=== PATIENT | male | born 2000 | race Caucasian/White ===

== ENCOUNTER → 2024-07-23 06:53 | Outpatient (REF) | payer OTHER, SELFPAY | LOC: MRI 06:53 | PROVIDERS: ATTENDING PHYSICIAN Family Medicine Sports Medicine; FAMILY PHYSICIAN Physician Assistant Medical | DX: S83.511A Sprain of anterior cruciate ligament of right knee, initial encounter (principal) | CPT/HCPCS: 73721 ==

== ENCOUNTER 2024-08-31 06:18 | Day surgery (SDC) | payer BC, SELFPAY ==
[2024-08-31] VITALS (18 sets, daily range): BP systolic 116–145; BP diastolic 50–91; BMI 25.9
[2024-08-31] MEDS: NORMOSOL-R/PLASMALYTE-A 1000 IV (09:00)
[2024-08-31] MEDS: TYLENOL 1000 MG PO (09:01)
[2024-08-31] MEDS: CELEBREX 200 MG PO (09:01)
[2024-08-31] MEDS: ZOFRAN 4 MG IV (12:47)
[2024-08-31] MEDS: COMPAZINE 5 MG IV (13:17)
--- NOTE | 2024-08-31 13:44 | SUR.PHASEI ---
Dr. Pack notified about pt.'s 02 level dropping to 74% on RA. Having periods of apnea. Dr. Pack at bedside. Will gave pt time till pain medication from OR where's off. Will continue to monitor pt. closely
--- NOTE | 2024-08-31 14:35 | SUR.PHASEI ---
Dr. Pack notified of continued respiratory status and [address] on 02 and give him time. Mom updated on phone. Will continue to monitor.
[2024-08-31] MEDS: TYLENOL 650 MG PO (16:27)
== END 2024-08-31 16:37 | disposition home or self-care (01) ==
LOC: SDS 06:18
PROVIDERS: ATTENDING PHYSICIAN Specialist
DX: S83.511A Sprain of anterior cruciate ligament of right knee, initial encounter (principal); X58.XXXA Exposure to other specified factors, initial encounter
CPT/HCPCS: 29888; C1713